=== PATIENT | female | born 1970 | race Two or more races ===

== ENCOUNTER 2017-05-16 13:34 | Emergency (ER) | payer OTHER ==
[2017-05-16 14:05] VITALS: BP 138/74
[2017-05-16] MEDS ORDERED: Silver Sulfadiazine 1%* 20 GM ONE (14:26)
--- NOTE | 2017-05-16 14:38 | UC ---
Marco Gamez Thomas, scribed for [facility]'STonny MD on 05/16/17 at 1400 . Skin Complaint HPI - HPI Summary HPI Summary: The pt is a 47 y/o F presenting to [facility] c/o a burn that occurred four days ago. 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 The pain is rated 5/10. The pain is aggravated by touch and alleviated by nothing. 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 Pt additionally c/o lightheadedness. Pt has no red streaks or any other complaints at this time. PMHx: previously healthy. PSHx: cholecystectomy. SHx: no smoking, no alcohol use , no illicit drug use. FHx: HTN, [place]. She is left-handed. Her PCP is Dr. Coulter. Note: Visit history noncontributory. Vital signs stable. Afebril. BP 138/74. 5/10 discomfort. Nurses Note: 4 days ago pt was baking for her catering company and moved a jamison from the top shelf of the oven and spilled boiling jam onto her right forearm, she has been treating with silvadine that she had at home but is concerned about infection - History of Current Complaint Time Seen by Provider: 05/16/17 13:46 Stated Complaint: BURN ARM Hx Obtained From: Patient Onset/Duration: Lasting Days - 4, Still Present Timing: Constant Pain Intensity: 5 Pain Scale Used: 0-10 Numeric Location: Other - Right forearm Aggravating: Touch Alleviating: Nothing Associated Signs & Symptoms: Negative: Fever, Red Streaks Related History: Other: - Burn with hot jam - Allergy/Home Medications Allergies/Adverse Reactions: Allergies Allergy/AdvReac Type Severity Reaction Status Date / Time No Known Allergies Allergy Unverified 05/16/17 14:03 Home Medications: Home Medications FLUoxetine CAP* [PROzac CAP*] 40 mg PO DAILY 05/16/17 [History Confirmed ] Levothyroxine TAB* [Synthroid TAB*] 150 mcg PO DAILY 05/16/17 [History Confirmed 05/16/17] Review of Systems Constitutional: Negative, Other - NEG: fever Skin: Other - POS: burn to right forearm; NEG: red streaks Eyes: Negative ENT: Negative Respiratory: Negative Cardiovascular: Negative Gastrointestinal: Negative Genitourinary: Negative Motor: Negative Neurovascular: Negative Musculoskeletal: Negative Neurological: Other - POS: lightheadedness Psychological: Negative All Other Systems Reviewed And Are Negative: Yes PMH/Surg Hx/FS Hx/Imm Hx Previously Healthy: No Cardiovascular History: Other Other Cardiovascular History: NEG: [place] Respiratory History: Other Other Respiratory History: NEG: COPD Psychological History: Depression - Surgical History Surgery Procedure, Year, and Place: jaw surgery 2012. Gall bladder removal 2009 - Family History Known Family History: Positive: Hypertension, Other - POS: [place] - Social History Alcohol Use: None Substance Use Type: None Smoking Status (MU): Never Smoked Tobacco Physical Exam Triage Information Reviewed: Yes Vital Signs: Temp 98.9, HR 74, RR 18, SaO2 100, BP 138/74. Vital Signs Reviewed: Yes Skin Exam: Normal, Other Skin: Positive: rashes, breakdown, Other - Additional Comments Appearance: The patient is well-appearing, is in no pain distress, and is well- nourished. Eyes: Conjunctiva are clear. ENT: The hearing is grossly normal, the pharynx is normal, and the TMs are normal. There is no muffled or hoarse voice. Neck: The neck is supple and nontender. Respiratory: The chest is nontender. The lungs are clear, there are normal breath sounds, and there is no respiratory distress. Cardiovascular: Heart is regular rate and rhythm. There is no murmur. Abdomen: The abdomen is soft and nontender. There is no organomegaly. Bowel sounds: present Musculoskeletal: Strength is intact. The patient moves all extremities. Neurological: The patient is alert. Psychological: The patient displays age appropriate behavior Skin: ON THE RIGHT FOREARM AND VOLAR ASPECT OF THE ELBOW CREASE THERE IS A THREE INCH BURN. ON THE PROXIMAL 1.5 INCHES, THERE APPEARS TO BE A FIRST DEGREE BURN. THERE IS AN OPEN AREA OF ABOUT 1.5 INCHES THAT WAS NOT A BLISTER AND HAS NOW SHED THE TOP LAYER OF SKIN. THE AREA IS PAINFUL TO TOUCH. Negative for rashes. Course/Dx - Course Course Of Treatment: The patient is a 47 y/o presenting with a burn to her right forearm that occurred four days ago. Medications have been included in the original chart and reviewed. Patient is Urgent/Emergent. BP elevated due to current condition w/o HTN in PMH. No signs of infection. Differential diagnosis is superficial vs deep burn. She is diagnosed with a partial thickness burn of the right forearm. - Differential Diagnoses - Skin Complaint Differential Diagnoses: Other - Superficial vs deep burn - Diagnoses Provider Diagnoses: Partial thickness burn of right forearm. Discharge - Discharge Plan Condition: Stable Disposition: HOME Prescriptions: Silver Sulfadiazine 1%* [SILVadine 1%*] 1 applic TOPICAL DAILY #1 tube Patient Education Materials: Second Degree Burn (ED) Referrals: Zoë Coulter MD [Primary Care Provider] - Additional Instructions: Thank you for helping us improve patient care by filling out the My Point Survey. our blood pressure reading today was 138/78, indicating HYPERTENSION. Follow-up with your primary care provider within 4 weeks for blood pressure readings and further evaluation, as needed. WE DISCUSSED: You have a partial thickness burn. See attached information. Clean gently and place medication and protective dressing once a day. Follow up every 3 days until the skin starts to heal over the wound. Watch for any signs of infection. Call us with any questions or concerns. Rest; increase fluids today. The documentation as recorded by the Marco machado Thomas accurately reflects the service I personally performed and the decisions made by , Tonny Pate MD.
[2017-05-16] MEDS ORDERED: Silver Sulfadiazine 1%* 20 GM TOPICAL ONE (14:41)
[2017-05-17] MEDS ORDERED: Silver Sulfadiazine 1%* 20 GM TOPICAL SCH (09:00)
== END 2017-05-16 14:49 | disposition home or self-care (01) ==
LOC: UCEAST 13:34
DX: T22.011A Burn of unspecified degree of right forearm, initial encounter (principal); X12.XXXA Contact with other hot fluids, initial encounter; Y93.G3 Activity, cooking and baking; Y92.89 Other specified places as the place of occurrence of the external cause; Y99.0 Civilian activity done for income or pay; R42 Dizziness and giddiness; F32.9 Major depressive disorder, single episode, unspecified
CPT/HCPCS: 99212; A9270-GY; G0463

== ENCOUNTER 2017-07-13 08:32 | Emergency (ER) | payer OTHER ==
[2017-07-13 08:44] VITALS: BP 122/56
--- NOTE | 2017-07-13 08:51 | UC ---
UC General HPI - HPI Summary HPI Summary: Pt presents through amb triage with reports of 2-3 months myalgis and joint pain. Pt also reports fatigue. Pt has been taking motrin with mild improvement. 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 Pt was attributing discomfort to this. This week pt has not work and symptoms not resolved. Pt rearresting test for lyme dx. no fever, chills, no know tick exposure. no rash. No cp, sob, abd pain no n/v/d Pt has not taken analgesia today. Pt does have thryoid dx. pt has not seen pcp in > 1 year. Pt's medications reviewed this visit - History of Current Complaint Chief Complaint: UCGeneralIllness Stated Complaint: BODY PAIN Time Seen by Provider: 07/13/17 08:46 Hx Obtained From: Patient Hx Last Menstrual Period: 06/15/17 Onset/Duration: Gradual Onset, Lasting Weeks Timing: Constant Onset Severity: Mild Current Severity: Mild - Allergy/Home Medications Allergies/Adverse Reactions: Allergies Allergy/AdvReac Type Severity Reaction Status Date / Time No Known Allergies Allergy Verified 07/13/17 08:37 PMH/Surg Hx/FS Hx/Imm Hx Previously Healthy: Yes - Surgical History Surgical History: Yes Surgery Procedure, Year, and Place: jaw surgery 2012. Gall bladder removal 2009 - Family History Known Family History: Positive: Hypertension, Other - POS: [place] - Social History Occupation: Employed Full-time Lives: With Family Alcohol Use: None Substance Use Type: None Smoking Status (MU): Never Smoked Tobacco Review of Systems Constitutional: Fatigue Skin: Negative Musculoskeletal: Arthralgia, Myalgia All Other Systems Reviewed And Are Negative: Yes Physical Exam Triage Information Reviewed: Yes Appearance: Well-Appearing, No Pain Distress, Well-Nourished Vital Signs: Initial Vital Signs Temp 97.7 F 07/13/17 08:37 Pulse 70 07/13/17 08:37 Resp 16 07/13/17 08:37 BP 122/56 07/13/17 08:37 Pulse Ox 100 07/13/17 08:37 Vital Signs Reviewed: Yes Eye Exam: Normal Eyes: Positive: Conjunctiva Clear ENT Exam: Normal ENT: Positive: Normal ENT inspection, Hearing grossly normal, Pharynx normal Dental Exam: Normal Neck exam: Normal Neck: Positive: Supple, Nontender, No Lymphadenopathy Respiratory Exam: Normal Respiratory: Positive: Chest non-tender, Lungs clear, Normal breath sounds, No respiratory distress, No accessory muscle use Cardiovascular Exam: Normal Cardiovascular: Positive: RRR, No Murmur, Pulses Normal Abdominal Exam: Normal Abdomen Description: Positive: Nontender, No Organomegaly, Soft Bowel Sounds: Positive: Present Musculoskeletal Exam: Normal Musculoskeletal: Positive: Strength Intact Neurological Exam: Normal Neurological: Positive: Muscle Tone Normal Psychological Exam: Normal Skin Exam: Normal Course/Dx - Course Course Of Treatment: Pt with progressive fatigue and body aches. Will check lym dx, cbc, and tsh. pt to call Dr. Coulter for follow-up and lab review. no Rx this visit. Pt comfortable and in agreement with plan - Differential Dx - Multi-Symptom Provider Diagnoses: myaglia, fatigue Discharge - Discharge Plan Condition: Stable Disposition: HOME Patient Education Materials: Musculoskeletal Pain (ED), Fatigue (ED) Referrals: Zoë Coulter MD [Primary Care Provider] - Additional Instructions: The doctor ordered blood work today to test you for lyme disease as well as to look at your thyroid levels and kidney/liver function Stay well hydrated. Drink plenty of non-alcoholic, non-caffinated beverage Okay to alternate ibuprofen (Advil, Motrin) and tylenol every 3 hours for pain. Take with food Your lab work will take up to 5 days to return - schedule an appointment with your primary to schedule a follow-up appointment and review your results If you need treatment for lyme disease - you will receive a call from our care team
[2017-07-13 12:26] LABS: Hematocrit 41 % (35-47); Hemoglobin 13.1 g/dl (12.0-16.0); Mean Corpuscular HGB Conc 32 g/dl (31-36); Mean Corpuscular Hemoglobin 26 pg (27-31); Mean Corpuscular Volume 79 fL (80-97); Mean Platelet Volume 9 um3 (7.4-10.4); Red Cell Distribution Width 13 % (10.5-15); White Blood Count 5.9 10^3/ul (3.5-10.8)
[2017-07-13 12:42] LABS: Albumin 4.2 g/dL (3.2-5.2); BUN/Creatinine Ratio 21.2 (8-20); Calcium 9.9 mg/dL (8.6-10.3); EGFR Non-African American 72.3 (>60); Globulin 2.7 g/dL (2-4); Potassium 4.5 mmol/L (3.5-5.0); Total Bilirubin 0.4 mg/dL (0.2-1.0); Total Protein 6.9 g/dL (6.4-8.9)
[2017-07-13 12:56] LABS: TSH (Thyroid Stimulating Horm) 0.08 mcIU/mL (0.34-5.60)
--- NOTE | 2017-07-14 09:46 | ED ---
Progress - Progress Note Progress Note: the patient requires follow up with her primary care doctor in the next week for mild microcytosis on her cbc and TSH which is low. This was relayed to the follow up nurse in [facility] after review of the labs. Course/Dx - Course Course Of Treatment: Pt with progressive fatigue and body aches. Will check lym dx, cbc, and tsh. pt to call Dr. Coulter for follow-up and lab review. no Rx this visit. Pt comfortable and in agreement with plan - Diagnoses Provider Diagnoses: Low TSH level, RBC microcytosis
== END 2017-07-13 09:10 | disposition home or self-care (01) ==
LOC: UCEAST 08:32
DX: M25.522 Pain in left elbow (principal); M25.521 Pain in right elbow; R53.83 Other fatigue
CPT/HCPCS: 36415; 80053; 84443; 85027; 86618; 99211; G0463

== ENCOUNTER 2018-05-10 18:34 | Emergency (ER) | payer BC ==
[2018-05-10 19:06] VITALS: BP 121/60
[2018-05-10] MEDS ORDERED: Lidocaine 1%* 5 ML VIAL INJ ONE (19:11)
--- NOTE | 2018-05-10 19:15 | UC ---
Laceration HPI - HPI Summary HPI Summary: A 48 y/o female accompanied by her son presents to [facility] [place]/o laceration on left pointer/index finger reaching 9/10 in severity. As per triage, "C/O LEFT INDEX FINGER LACERATION - CUT ON CAN AT ~1820 TONIGHT". According to the patient , she accidentally cut herself on a can and it is painful. 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 She attempted to catch the can, but ended up cutting herself. She cannot get it to stop bleeding and is painful with movement. Patient believes she is up to date on her Tetnus shot, but is unsure. - History Of Current Complaint Chief Complaint: UCLaceration Stated Complaint: FINGER LACERATION Time Seen by Provider: 05/10/18 19:07 Hx Obtained From: Patient Hx Last Menstrual Period: 1 WEEK AGO Laceration Location: Finger - Left pointer/index Mechanism Of Injury: Sharp Trauma Onset/Duration: Sudden Onset, Lasting Hours, Still Present Severity: Severe Pain Intensity: 9 Pain Scale Used: 0-10 Numeric Aggravating Factors: Movement - Allergies/Home Medications Allergies/Adverse Reactions: Allergies Allergy/AdvReac Type Severity Reaction Status Date / Time No Known Allergies Allergy Verified 05/10/18 19:06 PMH/Surg Hx/FS Hx/Imm Hx Endocrine History: Diabetes - NEGATIVE Cardiovascular History: Hypertension - NEGATIVE Respiratory History: Asthma - NEGATIVE - Surgical History Surgical History: Yes Surgery Procedure, Year, and Place: jaw surgery 2012. Gall bladder removal 2009 - Family History Known Family History: Positive: Hypertension, Other - POS: [place] - Social History Alcohol Use: None Substance Use Type: None Smoking Status (MU): Never Smoked Tobacco Review of Systems Constitutional: Negative Skin: Other - POSITIVE: Laceration on left index/pointer finger Eyes: Negative ENT: Negative Respiratory: Negative Cardiovascular: Negative Gastrointestinal: Negative Genitourinary: Negative Motor: Negative Neurovascular: Negative Musculoskeletal: Negative Neurological: Negative Psychological: Negative Is Patient Immunocompromised?: No All Other Systems Reviewed And Are Negative: Yes Physical Exam - Summary Physical Exam Summary: General: well-appearing, no pain distress Skin: warm, color reflects adequate perfusion, dry. 1 cm laceration on dorsum of left index finger, strength/ROM intact. Head: normal Eyes: EOMI, GAVIN ENT: normal Neck: supple, nontender Respiratory: CTA, breath sounds present Cardiovascular: RRR Abdomen: soft, nontender Bowel: present Musculoskeletal: normal, strength/ROM intact Neurological: sensory/motor intact, A&O x3 Psychological: affect/mood appropriate Triage Information Reviewed: Yes Vital Signs: Initial Vital Signs Temp 98.2 F 05/10/18 19:04 Pulse 65 05/10/18 19:04 Resp 16 05/10/18 19:04 BP 121/60 05/10/18 19:04 Pulse Ox 99 05/10/18 19:04 Vital Signs Reviewed: Yes Laceration Repair - Laceration Repair LEFT INDEX FINGER Procedure Summary: Patient was administered 1% Lidocaine with 5 prolene 5-0 sutures. 1 cm laceration on the dorsum of the left index finger over the middle of the phalanx. Laceration is subcutaneous, linear and was cleaned with Fariha-Clens and sterile saline. Finger had full ROM/strength was normal. Description: Linear Laceration Size After Repair: Length (cm) - 1 CM Type Injection: Local Anesthesia Used: 1.0% Lido Cleansing Completed Via Routine Prep: Yes Closure Material: Sutures - 5 sutures Suture Of: Skin Suture Type: Prolene - 5-0 Laceration Course/Dx - Course/Dx Course Of Treatment: Medications reviewed. Allergies noted. TDAP GIVEN IN CLINIC. FINGER FROM WITH FULL STRENGTH. SUTURES OUT IN 8-10 DAYS. RECHECK SOONER IF WORSE. - Differential Dx - Laceration/Wound Provider Diagnoses: LEFT INDEX FINGER LACERATION Discharge - Sign-Out/Discharge Documenting (check all that apply): Patient Departure - DISCHARGE All imaging exams completed and their final reports reviewed: No Studies - Discharge Plan Condition: Stable Disposition: HOME Patient Education Materials: Care For Your Stitches (ED), Laceration (ED) Referrals: Zoë Coulter MD [Primary Care Provider] - Additional Instructions: FOLLOW UP WITH YOUR DOCTOR. SUTURES OUT IN 8-10 DAYS. YOU HAVE YOUR TETANUS/DIPTHERIA IMMUNIZATION TODAY IN CLINIC. GET RECHECKED FOR ANY WORSENING OF YOUR CONDITION; SIGNS OF INFECTION OR QUESTIONS OR CONCERNS. - Billing Disposition and Condition Condition: STABLE Disposition: Home - Attestation Statements Document Initiated by Scribe: Yes Documenting Scribe: Cam Guerrero Provider For Whom Scribe is Documenting (Include Credential): Luis Robledo MD Scribe Attestation: I, Cam Guerrero, scribed for Luis Robledo MD on 05/10/18 at 1959. Scribe Documentation Reviewed: Yes Provider Attestation: The documentation as recorded by the scribeCam accurately reflects the service I personally performed and the decisions made by me, Luis Robledo MD
[2018-05-10] MEDS ORDERED: Tetan/Diph/Pertus SYR(Tdap)* 0.5 ML SYR(BOOSTRIX) use SYR IM ONE (19:36)
== END 2018-05-10 20:05 | disposition home or self-care (01) ==
LOC: UCEAST 18:34
DX: S61.221A Laceration with foreign body of left index finger without damage to nail, initial encounter (principal); W26.8XXA Contact with other sharp object(s), not elsewhere classified, initial encounter; Y93.89 Activity, other specified; Y92.89 Other specified places as the place of occurrence of the external cause; Y99.0 Civilian activity done for income or pay
CPT/HCPCS: 12001; 90471; 90715; 99211; G0463